=== PATIENT | male | born 1990 | race Caucasian/White ===

== ENCOUNTER 2018-01-20 21:11 | Emergency (ER) | payer BC ==
[2018-01-20] MEDS ORDERED: Pantoprazole 40 MG in Sodium Chloride 0.9% 100 ML IV ONE (23:06)
[2018-01-20] MEDS ORDERED: Metoclopramide 10 MG/2 ML SDV IVPUSH ONE (23:06)
--- NOTE | 2018-01-20 23:08 | EDM.PDOC ---
ED HPI GENERAL MEDICAL PROBLEM - General Chief Complaint: General Stated Complaint: BLOOD IN VOMIT Time Seen by Provider: 01/20/18 23:05 Source of Information: Reports: Patient History Limitations: Reports: No Limitations - History of Present Illness INITIAL COMMENTS - FREE TEXT/NARRATIVE: 27-year-old male presents the ED reporting that he was retching and vomiting extremely hard this evening. The first emesis was food recently eaten and some bile salts. The last 2 emeses contained elsy blood. No clots. He reports perhaps half upon full of blood on each occasion. He states after he emptied out his stomach he feels better. He admits to drinking alcohol fairly heavily over the weekend none today. Didn't really have a hangover today and feels he ate adequately. Developed sudden onset of nausea about 2100 hrs. with precipitated perhaps the hardest emesis that he has ever experienced. Patient has no blood clotting problems and takes no blood thinners. This is never happened to him before. He does have a history of very bad esophageal reflux disease for which she does not take any medication for. He is woken up in the night with acid brash water in his mouth. Is heartburn on a daily basis. He has not drank any fluids since emesis to identify whether there is any odynophagia. States at present she feels quite a bit better with very little nausea at present. Does not feel lightheaded or dizzy. Blood pressure and vital signs are normal. He has no past history of documented peptic ulcer disease Onset: Today Onset Date: 01/20/18 Onset Time: 21:00 Duration: Minutes: Quality: Reports: Other Severity: Moderate (His eyes any pain at present.) Improves with: Reports: Other (Much better after he vomited.) Worsens with: Reports: Eating Context: Reports: Other (Fairly heavy alcohol use the last 2 nights.). Denies: Activity, Exercise, Lifting, Sick Contact, Trauma Associated Symptoms: Reports: No Other Symptoms Treatments CARTOGRAPHY PROFESSOR: Reports: Other (see below) Other Treatments CARTOGRAPHY PROFESSOR: none - Related Data Allergies Allergy/AdvReac Type Severity Reaction Status Date / Time Sulfa (Sulfonamide Allergy Cannot Verified 01/20/18 21:53 Antibiotics) Remember Home Meds: Home Meds Omeprazole [priLOSEC OTC] 20 mg PO DAILY #42 tab.sr 01/21/18 [Rx] Past Medical History Gastrointestinal History: Reports: GERD (He has a history of severe reflux disease often waking up with brash water in his mouth sometimes twice weekly. Heartburn is almost every day. Does use a lot of Tums and Rolaids. He's never been checked for H. pylori infection in these never started Prilosec or other acid reducing agents.) - Past Surgical History Cardiovascular Surgical History: Reports: Varicose Other Cardiovascular Surgeries/Procedures: surgery Social & Family History - Tobacco Use Smoking Status *Q: Never Smoker - Caffeine Use Caffeine Use: Reports: Coffee, Tea - Recreational Drug Use Recreational Drug Use: No - Living Situation & Occupation Living situation: Reports: with Significant Other Occupation: Employed ED ROS GENERAL - Review of Systems Review Of Systems: See Below Constitutional: Denies: Fever, Chills, Malaise, Weakness, Fatigue, Decreased Appetite, Weight Loss HEENT: Reports: No Symptoms Respiratory: Reports: No Symptoms Cardiovascular: Reports: No Symptoms Endocrine: Reports: No Symptoms GI/Abdominal: Reports: Hematemesis (Report of hematemesis 2 with the last 2 emeses.), Nausea (With) : Reports: No Symptoms Musculoskeletal: Reports: No Symptoms Skin: Reports: No Symptoms Neurological: Reports: No Symptoms Psychiatric: Reports: No Symptoms Hematologic/Lymphatic: Reports: No Symptoms Immunologic: Reports: No Symptoms ED EXAM, GENERAL - Physical Exam Exam: See Below Exam Limited By: No Limitations General Appearance: Alert, WD/WN, No Apparent Distress, Other (Color is good. He doesn't even 2 seem to be that anxious about) Eye Exam: Bilateral Eye: Normal Inspection ( throwing up blood.) Nose: Other Throat/Mouth: Normal Inspection, Normal Lips, Normal Teeth, Normal Oropharynx, Other Head: Atraumatic, Normocephalic (Blood in the oral cavity) Neck: Normal Inspection, Supple, Non-Tender, Full Range of Motion. No: Lymphadenopathy (L), Lymphadenopathy (R) Respiratory/Chest: Lungs Clear, Normal Breath Sounds, No Accessory Muscle Use, Chest Non-Tender Cardiovascular: Normal Peripheral Pulses, Regular Rate, Rhythm, No Edema, No Gallop, No Murmur, No Rub, Bradycardia (Heart rate is 58/m.) Peripheral Pulses: 3+: Posterior Tibial (L), Posterior Tibial (R), Dorsalis Pedis (L), Dorsalis Pedis (R) GI/Abdominal: Normal Bowel Sounds, Soft, Non-Tender, No Organomegaly, No Abnormal Bruit, No Mass, Pelvis Stable Back Exam: Normal Inspection, Full Range of Motion. No: CVA Tenderness (L), CVA Tenderness (R) Extremities: Normal Inspection, Normal Range of Motion, Non-Tender, No Pedal Edema Neurological: Alert, Oriented, CN II-XII Intact, Normal Cognition, Normal Gait Psychiatric: Normal Affect, Normal Mood Skin Exam: Warm, Dry, Intact, Normal Color Lymphatic: No Adenopathy Course - Vital Signs Last Recorded V/S: Last Vital Signs Temp 36.6 C 01/20/18 21:48 Pulse 58 L 01/20/18 21:48 Resp 20 01/20/18 21:48 BP 126/87 01/20/18 21:48 Pulse Ox 99 01/20/18 21:48 - Orders/Labs/Meds Orders: Active Orders 24 hr Category Date Time Status Orthostatic Vital Signs [RC] ASDIRECTED Care 01/20/18 23:07 Active Labs: Laboratory Tests 01/20/18 01/20/18 01/20/18 Range/Units 23:20 23:20 23:20 WBC 8.78 (4.23-9.07) K/mm3 RBC 5.24 (4.63-6.08) M/mm3 Hgb 15.2 (13.7-17.5) gm/L Hct 44.3 (40.1-51.0) % MCV 84.5 (79.0-92.2) fl MCH 29.0 (25.7-32.2) pg MCHC 34.3 (32.2-35.5) g/dl RDW Std Deviation 38.6 (35.1-43.9) fL Plt Count 242 (163-337) K/mm3 MPV 9.0 L (9.4-12.3) fl Neutrophils % (Manual) 66 H (40-60) % Band Neutrophils % 0 (0-10) % Lymphocytes % (Manual) 23 (20-40) % Atypical Lymphs % 1 % Monocytes % (Manual) 6 (2-10) % Eosinophils % (Manual) 2 (0.8-7.0) % Basophils % (Manual) 2 H (0.2-1.2) Platelet Estimate Adequate Plt Morphology Comment Normal RBC Morph Comment Normal Sodium 141 (136-145) mEq/L Potassium 4.1 (3.5-5.1) mEq/L Chloride 103 (98-107) mEq/L Carbon Dioxide 30 (21-32) mEq/L Anion Gap 12.1 (5-15) BUN 14 (7-18) mg/dL Creatinine 1.0 (0.7-1.3) mg/dL Est Cr Clr Drug Dosing 127.62 mL/min Estimated GFR (MDRD) > 60 (>60) mL/min BUN/Creatinine Ratio 14.0 (14-18) Glucose 107 H (74-106) mg/dL Calcium 9.4 (8.5-10.1) mg/dL Total Bilirubin 0.5 (0.2-1.0) mg/dL AST 24 (15-37) U/L ALT 39 (16-63) U/L Alkaline Phosphatase 78 (46-116) U/L Total Protein 7.3 (6.4-8.2) g/dl Albumin 4.2 (3.4-5.0) g/dl Globulin 3.1 gm/dL Albumin/Globulin Ratio 1.4 (1-2) Amylase 83 (25-115) U/L H. pylori IgG Antibody Negative (NEGATIVE) Meds: Medications Discontinued Medications Generic Name Dose Route Start Last Admin Trade Name Freq PRN Reason Stop Dose Admin Pantoprazole Sodium 40 mg/ 100 mls @ 200 mls/hr 01/20/18 23:06 01/20/18 23:32 Sodium Chloride IV 01/20/18 23:35 200 mls/hr ONETIME ONE Administration Sodium Chloride 1,000 mls @ 500 mls/hr 01/20/18 23:15 01/20/18 23:29 Normal Saline IV 500 mls/hr ASDIRECTED BETHANIE Administration Metoclopramide HCl 7.5 mg 01/20/18 23:06 01/20/18 23:30 Reglan IVPUSH 01/20/18 23:07 7.5 mg ONETIME ONE Administration Ondansetron HCl 4 mg 01/21/18 00:47 01/21/18 00:56 Zofran Odt PO 01/21/18 00:48 4 mg ONETIME ONE Administration - Radiology Interpretation Free Text/Narrative:: 27-year-old male presents the ED after spontaneous development of nausea and vomiting. States he vomited harder than he is ever vomited before. Initial emesis contained recently eaten food and some bile salts. Second and third emeses contained about a half palm of fresh blood without clot. Is what brought him to the ED. The history suggests he has fairly bad gastroesophageal reflux disease which is been left untreated. He also is drinking alcohol fairly heavily last 2 nights. Has no history of known pancreatitis or peptic ulcer disease. As far she knows he's never been checked for H. pylori infection. Vital signs are stable his color is good .He is not orthostatic. Plan routine labs. IV will be normal saline at 200 mils per hour. Will give Protonix 40 mg IV but without a drip. Also given Zofran 4 mg IVs so is that he doesn't express any further nausea/vomiting. - Re-Assessments/Exams Free Text/Narrative Re-Assessment/Exam: 01/21/18 00:36 Lab work is back. White count is 8.78 with 66% neutrophils and no bands. Hemoglobin is 15.2 with hematocrit of 44.3. MCV is 84.5 platelet count is normal 242,000. Sodium is 141 with a potassium of 4.1. Chloride is 103 with a bicarbonate 30. Anion gap is 12.1 with a BUN of 14. Creatinine is 1.0. Glucose is 107. Calcium is 9.4. Total bilirubin 0.5 AST is 24 ALT is 39. Alk phosphatase is 78. Amylase is normal at 80 3H pylori is negative. Patient does not appear to 6 suffered a significant GI bleed since his BUN is only 14. His vitals have remained absolutely stable while in the ED with no signs of developing hypotension or evidence of active bleeding. He feels fine with no further abdominal pain or nausea. I'm going to give him Pepcid 20 mg per ora now. He has had hypertonic for tonight but he was advised to purchase Prilosec 20 mg every night at bedtime for the next 6 weeks to heal any ulceration and then see if he needs it or not for recurrent heartburn. By history sounds like this is a chronic reflux problem and he needs Prilosec daily or every other day at bedtime to prevent long-term damage to his esophagus. Of course backing off of alcohol use may help immensely as well. He will return to the ED if any further upper GI bleeding occurs. Advised he may well see black stools for a day or 2 every 2 bowel movements and it should clear up back to normal. Departure - Departure Time of Disposition: 00:43 Disposition: Home, Self-Care 01 Condition: Fair Clinical Impression: Acute upper GI bleed - Discharge Information Prescriptions: Omeprazole [priLOSEC OTC] 20 mg PO DAILY #42 tab.sr Instructions: Upper Gastrointestinal Bleeding Referrals: PCP,None [Primary Care Provider] - Forms: ED Department Discharge Additional Instructions: Evaluation in the emergency room tonight in regards to acute onset of nausea that precipitated 3 days. Due to her strong history of heartburn I would suggest taking Prilosec 20 mg once daily at bedtime. He received Protonix intravenously while in the ED which is the same idea. He would not need to start Prilosec until tomorrow night. As you discussed worse vomiting you've ever had. The cause of this is unclear. You're showing no signs of infection such as fever chills to suggest a viral cause. Alcohol use over the last day or 2 may have contributed to inflamed stomach called gastritis and retching so hard likely broken blood vessels in the upper stomach to cause bright red blood to show up in your vomitus. Lab tests done revealed no sign of a severe upper GI bleed or continued bleeding. It also showed no signs of pancreatitis. H. pylori organisms that cause is 94% of ulcers ,testing was also negative. You're vital signs remained stable. Therefore I do not feel you have any further bleeding going on. Suspect very hard vomiting brought blood vessels that caused transient bleeding. I'll send her home to Zofran tablets to be taken under the tongue one tablet every 6 hours if needed for recurrence of nausea expect stools to possibly be a little black in color for the next day or 2 if you had a significant bleeding from the stomach. Of course return to the hospital if further bleeding occurs with nausea and vomiting or blood in the stool. - My Orders Last 24 Hours: My Active Orders 01/20/18 23:07 Orthostatic Vital Signs [RC] ASDIRECTED - Assessment/Plan Last 24 Hours: My Active Orders 01/20/18 23:07 Orthostatic Vital Signs [RC] ASDIRECTED
[2018-01-20] MEDS ORDERED: Sodium Chloride 0.9% 1,000 ML IV SCH (23:15)
[2018-01-21] MEDS ORDERED: Ondansetron 4 MG Tab.DIS PO ONE (00:47)
== END 2018-01-21 00:59 | disposition home or self-care (01) ==
LOC: JD.ED 21:11
DX: K92.2 Gastrointestinal hemorrhage, unspecified (principal); K21.9 Gastro-esophageal reflux disease without esophagitis; Z79.899 Other long term (current) drug therapy; Z88.2 Allergy status to sulfonamides
CPT/HCPCS: 36415; 80053; 82150; 85025; 86677; 96361; 96365; 96375; 99285; A9270; C9113; J2765; J7030; J7040; 99284